=== PATIENT | female | born 1965 | race Two or more races ===

== ENCOUNTER 2019-03-24 11:54 | Inpatient (IN) | payer OTHER ==
[~2019-03-24] VITALS: Ht 147.3 cm; Wt 93.4 kg
[2019-04-24] MEDS ORDERED: LIPITOR20 MG PO (13:58)
[2019-04-24] MEDS ORDERED: ZANTAC300 MG PO (13:58)
[2019-04-24] MEDS ORDERED: [UNRECOGNIZED DRUG - OTHER] PO (13:59)
[2019-04-24] MEDS ORDERED: TRICOR145 MG PO (13:59)
[2019-04-24] MEDS ORDERED: FORTAMET1000 MG (14:00)
[2019-04-24] MEDS ORDERED: COZAAR25 MG PO (14:00)
[2019-04-24] MEDS ORDERED: SINGULAIR10 MG PO (14:00)
[2019-04-24] MEDS ORDERED: PROAIR HFA8.5 GM IH (14:01)
[2019-04-24] MEDS ORDERED: GLIMEPIRIDE2 MG PO (14:01)
[2019-04-24] MEDS ORDERED: SYMBICORT 80/10.2 GM IH (14:02)
[2019-04-24] MEDS ORDERED: [UNRECOGNIZED DRUG - OTHER] IN (14:02)
[2019-04-27] MEDS ORDERED: THEOCHRON300 MG PO (07:59)
[2019-04-27] MEDS ORDERED: COZAAR50 MG PO (08:01)
[2019-04-27] MEDS ORDERED: IPRAT-ALBUT 0.5-3 ML (08:06)
[2019-04-27] MEDS ORDERED: PROAIR HFA8.5 GM (08:09)
[2019-05-17] MEDS ORDERED: TRAM1TAB98 PO (08:42)
[2019-05-17] MEDS ORDERED: INTESTINEX680 M1 PO (08:42)
== END 2019-05-17 16:34 | disposition home health service (06) | DRG 329 ==
LOC: EDSTATUS 04-10 10:15 → ADM 04-10 10:15 → ICU 04-27 06:38 → SURH 04-27 06:38 → O/R 04-27 06:38 → SURH 04-27 10:15 → ICU 04-27 18:18 → SURH 05-11 20:11
PROVIDERS: Obstetrics & Gynecology Gynecologic Oncology; Urology; ADMIT Surgery
PROC: 0UT20ZZ Resection of Bilateral Ovaries, Open Approach (ICD-10-PCS; 2019-04-27)
PROC: 0DJD8ZZ Inspection of Lower Intestinal Tract, Via Natural or Artificial Opening Endoscopic (ICD-10-PCS; 2019-04-27)
PROC: 0T770DZ Dilation of Left Ureter with Intraluminal Device, Open Approach (ICD-10-PCS; 2019-04-27)
PROC: 0BH17EZ Insertion of Endotracheal Airway into Trachea, Via Natural or Artificial Opening (ICD-10-PCS; 2019-04-27)
PROC: 5A1935Z Respiratory Ventilation, Less than 24 Consecutive Hours (ICD-10-PCS; 2019-04-27)
PROC: 4A033R1 Measurement of Arterial Saturation, Peripheral, Percutaneous Approach (ICD-10-PCS; 2019-04-27)
PROC: 4A12X4Z Monitoring of Cardiac Electrical Activity, External Approach (ICD-10-PCS; 2019-04-27)
PROC: 0T9B70Z Drainage of Bladder with Drainage Device, Via Natural or Artificial Opening (ICD-10-PCS; 2019-04-27)
PROC: 0DTN0ZZ Resection of Sigmoid Colon, Open Approach (ICD-10-PCS; principal; 2019-04-27 22:15)
PROC: 0UT90ZZ Resection of Uterus, Open Approach (ICD-10-PCS; 2019-04-27 22:15)
PROC: 0UT70ZZ Resection of Bilateral Fallopian Tubes, Open Approach (ICD-10-PCS; 2019-04-27 22:15)
PROC: 0DH67UZ Insertion of Feeding Device into Stomach, Via Natural or Artificial Opening (ICD-10-PCS; 2019-04-28)
PROC: 3E0G76Z Introduction of Nutritional Substance into Upper GI, Via Natural or Artificial Opening (ICD-10-PCS; 2019-04-28)
PROC: 3E0336Z Introduction of Nutritional Substance into Peripheral Vein, Percutaneous Approach (ICD-10-PCS; 2019-04-29)
PROC: 02HV33Z Insertion of Infusion Device into Superior Vena Cava, Percutaneous Approach (ICD-10-PCS; 2019-04-29)
PROC: BW21YZZ Computerized Tomography (CT Scan) of Abdomen and Pelvis using Other Contrast (ICD-10-PCS; 2019-05-01)
PROC: 0D1L074 Bypass Transverse Colon to Cutaneous with Autologous Tissue Substitute, Open Approach (ICD-10-PCS; 2019-05-05)
PROC: 0D9W30Z Drainage of Peritoneum with Drainage Device, Percutaneous Approach (ICD-10-PCS; 2019-05-09)
PROC: BW21ZZZ Computerized Tomography (CT Scan) of Abdomen and Pelvis (ICD-10-PCS; 2019-05-15)
DX: C20 Malignant neoplasm of rectum (principal); J96.01 Acute respiratory failure with hypoxia; A41.9 Sepsis, unspecified organism; K65.1 Peritoneal abscess; B37.1 Pulmonary candidiasis; C18.7 Malignant neoplasm of sigmoid colon; J45.51 Severe persistent asthma with (acute) exacerbation; E44.0 Moderate protein-calorie malnutrition; J95.89 Other postprocedural complications and disorders of respiratory system, not elsewhere classified; J98.11 Atelectasis; E87.0 Hyperosmolality and hypernatremia; B37.89 Other sites of candidiasis; J90 Pleural effusion, not elsewhere classified; K57.20 Diverticulitis of large intestine with perforation and abscess without bleeding; B96.29 Other Escherichia coli [E. coli] as the cause of diseases classified elsewhere; B95.2 Enterococcus as the cause of diseases classified elsewhere; B96.7 Clostridium perfringens [C. perfringens] as the cause of diseases classified elsewhere; B96.6 Bacteroides fragilis [B. fragilis] as the cause of diseases classified elsewhere; I11.9 Hypertensive heart disease without heart failure; G47.33 Obstructive sleep apnea (adult) (pediatric); E66.01 Morbid (severe) obesity due to excess calories; D25.1 Intramural leiomyoma of uterus; N72 Inflammatory disease of cervix uteri; R31.0 Gross hematuria; N28.89 Other specified disorders of kidney and ureter; E11.65 Type 2 diabetes mellitus with hyperglycemia; N83.312 Acquired atrophy of left ovary; N83.311 Acquired atrophy of right ovary; K63.89 Other specified diseases of intestine; E86.0 Dehydration; F41.8 Other specified anxiety disorders; Z99.81 Dependence on supplemental oxygen; Z79.4 Long term (current) use of insulin

== ENCOUNTER 2020-03-06 07:40 | Outpatient (CLI) | payer OTHER ==
[~2020-03-06 07:40] MED LIST: COZAAR25 MG PO; COZAAR50 MG PO; FORTAMET1000 MG; GLIMEPIRIDE2 MG PO; INTESTINEX680 M1 PO; IPRAT-ALBUT 0.5-3 ML; LIPITOR20 MG PO; PROAIR HFA8.5 GM; PROAIR HFA8.5 GM IH; SINGULAIR10 MG PO; SYMBICORT 80/10.2 GM IH; THEOCHRON300 MG PO; TRAM1TAB98 PO; TRICOR145 MG PO; ZANTAC300 MG PO; [UNRECOGNIZED DRUG - OTHER] IN; [UNRECOGNIZED DRUG - OTHER] PO
== END 2020-03-06 07:42 | disposition home or self-care (01) ==
LOC: RX STUDY 07:40
PROVIDERS: ATTEND Surgery
DX: C19 Malignant neoplasm of rectosigmoid junction (principal); R59.0 Localized enlarged lymph nodes; K59.04 Chronic idiopathic constipation; K92.1 Melena

== ENCOUNTER 2020-04-04 10:45 | Inpatient (IN) | payer OTHER ==
[~2020-04-04] VITALS: Ht 147.3 cm; Wt 93.4 kg
[2020-04-15] MEDS ORDERED: OXYC1TAB9 PO (09:58)
[2020-04-15] MEDS ORDERED: INTESTINEX680 M1 PO (09:58)
== END 2020-04-15 11:46 | disposition home or self-care (01) | DRG 330 ==
LOC: SURH 04-11 05:52 → SURG 04-11 05:52 → O/R 04-11 05:52 → SURH 04-11 10:45 → SURG 04-12 13:20
PROVIDERS: ADMIT Surgery; ATTEND Surgery
PROC: 4A033R1 Measurement of Arterial Saturation, Peripheral, Percutaneous Approach (ICD-10-PCS; 2020-04-11)
PROC: 3E0F7GC Introduction of Other Therapeutic Substance into Respiratory Tract, Via Natural or Artificial Opening (ICD-10-PCS; 2020-04-11)
PROC: 0DSP4ZZ Reposition Rectum, Percutaneous Endoscopic Approach (ICD-10-PCS; principal; 2020-04-11 15:30)
PROC: 4A12X4Z Monitoring of Cardiac Electrical Activity, External Approach (ICD-10-PCS; 2020-04-12)
DX: Z43.3 Encounter for attention to colostomy (principal); D62 Acute posthemorrhagic anemia; J95.89 Other postprocedural complications and disorders of respiratory system, not elsewhere classified; J98.11 Atelectasis; I11.9 Hypertensive heart disease without heart failure; G47.33 Obstructive sleep apnea (adult) (pediatric); E66.01 Morbid (severe) obesity due to excess calories; J45.20 Mild intermittent asthma, uncomplicated; E11.65 Type 2 diabetes mellitus with hyperglycemia; Z79.4 Long term (current) use of insulin

== ENCOUNTER 2020-10-15 07:00 | Day surgery (SDC) | payer OTHER ==
[~2020-10-15 07:00] MED LIST changes: +OXYC1TAB9 PO
== END 2020-10-15 11:40 | disposition home or self-care (01) ==
LOC: AMB-ENDOS 07:00
PROVIDERS: ATTEND Surgery
DX: K62.89 Other specified diseases of anus and rectum (principal); Z20.822 Contact with and (suspected) exposure to COVID-19